=== PATIENT | female | born 1995 | race Two or more races ===

== ENCOUNTER 2017-07-01 15:15 | Emergency (ER) | payer OTHER ==
[2017-07-01 15:23] VITALS: BMI 28.3
[2017-07-01] MEDS ORDERED: NS 1000 ML 1,000 ML ONE (15:55)
[2017-07-01] MEDS ORDERED: NS 1000 ML 1,000 ML IV ONE (15:56)
[2017-07-01] MEDS ORDERED: ZOFRAN INJ 4 MG VIAL IVP ONE (15:56)
--- NOTE | 2017-07-01 15:59 | DR.N/VPEDF ---
HPI - Time Seen Time seen: 15:55 - Primary Care Physician Primary Care Physician: NFD - Complaints Chief Complaint Doctors Comments: Patient presents with complaint of weakness, dizziness onset three days ago. Denies vomiting, diarrhea or fever. Chief Complaint:: FEELING VERY WEAK, DIZZY AND HARDLY EATING. PT STATES," STARTED THREE DAYS AGO." Self Treatment fo Chief Complaint: IN BED FOR REST. WHEN I GOT UP I FELT DIZZY AND THROWING UP. - Source History Provided: Patient - Mode of Arrival Mode of Arrival: Ambulatory - Timing Onset of Chief Complaint: 06/21/17 - Associated Signs and Symptoms Temperature: 98.1 F PMH - Past Surgical History Past Surgical History: Yes Past Surgical History Comment: GASTRIC SLEEVE - Family History History of Family Medical Conditions: No - Social Does any household member use tobacco: No Alcohol Use: None - Vaccines Yearly Influenza Vaccine: Yes Pneumococcal Vaccine Every 5 Yrs: Yes (2017) - infectious screening In the last 2 months have you had wt loss of >10#?: NO Have you had fever, night sweats or hemotysis?: No Have you traveled outside the country in the last 6 months?: No Isolation: Standard ROS (Ped) - Review of Systems Eyes: No Symptoms Reported ENTM: No Symptoms Reported Respiratoy: No Symptoms Reported Cardiovascular: No Symptoms Reported Gastrointestinal/Abdominal: No Symptoms Reported Genitourinary: No Symptoms Reported Neurological: No Symptoms Reported Musculoskeletal: No Symptoms Reported Integumentary: No Symptoms Reported Hematologic/Lymphatic: No Symptoms Reported Endocrine: No Symptoms Reported Psychiatric: No Symptoms Reported All Other Systems: Reviewed and Negative PE - Vital Signs Vitals: Temperature 98.1 F Pulse Rate 91 Respiratory Rate 22 Blood Pressure 113/64 O2 Sat by Pulse Oximetry 100 - General Constitutional: Normal - Head Head Exam: Normal Inspection, Atraumatic - Eyes Eye exam: Normal Appearance, PERRL, EOMI - ENT ENT Exam: Normal Exam, Normal Oropharynx - Neck Neck Exam: Normal Inspection, Full ROM - Chest Chest Inspection: Normal Inspection - Respiratory Respiratory Exam: Normal Lung Sounds Bilat Respiratory Exam: Bilateral Clear to Auscultation - Cardiovascular Cardiovascular Exam: Regular Rate, Normal Rhythm - Abdominal Exam Abdominal Exam: Normal Inspection, Normal Bowel Sounds Abdominal Tenderness: negative: RUQ, RLQ, LUQ, LLQ, Epigastrium, Suprapubic, Diffuse, Mild, Moderate, Severe, Other - Rectal Rectal Exam: Deferred - Genitourinary External Exam: Female: Deferred - Extremities Extremities Exam: Normal Inspection, Full ROM - Back Back Exam: Normal Inspection, Full ROM - Neurologic Neurological Exam: Alert, Oriented X3, CN II-XII Intact - Psychiatric Psychiatric Exam: Normal Affect, Normal Mood - Skin Skin Exam: Warm, Dry, Intact Course - Reevaluation 1st: Unchanged ROR - Labs Reviewed Result Diagrams: 07/01/17 16:03 07/01/17 16:03 Laboratory: WBC 6.8 X10^3/uL (3.6-10.0) 07/01/17 16:03 RBC 4.09 X10^6/uL (3.5-5.4) 07/01/17 16:03 Hgb 11.4 g/dL (12.0-16.0) L 07/01/17 16:03 Hct 33.5 % (36.0-47.0) L 07/01/17 16:03 MCV 81.9 fL (80.0-100.0) 07/01/17 16:03 MCH 27.8 pg (27.0-34.0) 07/01/17 16:03 MCHC 34.0 g/dL (33.0-35.0) 07/01/17 16:03 RDW 13.9 % (11.6-16.5) 07/01/17 16:03 Plt Count 225 X10^3/uL (150.0-450.0) 07/01/17 16:03 MPV 9.0 fL (7.4-11.0) 07/01/17 16:03 Neut % 60.7 % (42.0-75.0) 07/01/17 16:03 Lymph % 31.2 % (21.0-51.0) 07/01/17 16:03 [place] % 7.0 % (0.0-13.0) 07/01/17 16:03 Eos % 0.7 % (0.9-2.9) L 07/01/17 16:03 Baso % 0.4 % (0.2-1.0) 07/01/17 16:03 Neut # 4.1 x10^3/uL (2.2-4.8) 07/01/17 16:03 Lymph # 2.1 X10^3/uL (1.3-2.9) 07/01/17 16:03 [place] # 0.5 x10^3/uL (0.3-0.8) 07/01/17 16:03 Eos # 0.1 x10^3/uL (0.0-0.2) 07/01/17 16:03 Baso # 0.0 X10^3/uL (0.0-0.1) 07/01/17 16:03 Absolute Nucleated RBC 0.0 /100WBC 07/01/17 16:03 Sodium 137 mmol/L (136-145) 07/01/17 16:03 Corrected Sodium TNP 07/01/17 16:03 Potassium 4.2 mmol/L (3.5-5.1) 07/01/17 16:03 Chloride 103 mmol/L (98-107) 07/01/17 16:03 Carbon Dioxide 24.7 mmol/L (21-32) 07/01/17 16:03 BUN 7 mg/dL (7-18) 07/01/17 16:03 Creatinine 0.51 mg/dL (0.55-1.02) L 07/01/17 16:03 Est GFR (MDRD) Af Amer > 60 (>60) 07/01/17 16:03 Est GFR (MDRD) Non-Af > 60 (>60) 07/01/17 16:03 Glucose 93 mg/dL (65-99) 07/01/17 16:03 Calcium 9.0 mg/dL (8.5-10.1) 07/01/17 16:03 Corrected Calcium TNP 07/01/17 16:03 Total Bilirubin 0.70 mg/dL (0.2-1.0) 07/01/17 16:03 AST 13 Units/L (15-37) L 07/01/17 16:03 ALT 9 Units/L (12-78) L 07/01/17 16:03 Alkaline Phosphatase 66 Units/L (45-150) 07/01/17 16:03 Total Protein 7.8 g/dL (6.4-8.2) 07/01/17 16:03 Albumin 3.7 g/dL (3.4-5.0) 07/01/17 16:03 Globulin 4.1 g/dL (2.5-4.5) 07/01/17 16:03 Albumin/Globulin Ratio 0.9 Ratio (1.1-2.1) L 07/01/17 16:03 Influenza Type A (PCR) Negative (NEGATIVE) 07/01/17 16:34 Influenza Type B (PCR) Negative (NEGATIVE) 07/01/17 16:34 S. pyogenes (TEM-PCR) Not detected (NOT DETECT) 07/01/17 16:05 - Diagnosis Discharge Problem: Dizziness - Discharge Plan Condition: Stable - Follow ups/Referrals Follow ups/Referrals: NFD,None [Primary Care Provider] - 3 days - Instructions
[2017-07-01 16:07] LABS: BASOPHILS % (AUTO) 0.4 % (0.2-1.0); EOSINOPHILS # (AUTO) 0.1 x10^3/uL (0.0-0.2); EOSINOPHILS % (AUTO) 0.7 % (0.9-2.9); HEMATOCRIT 33.5 % (36.0-47.0); HEMOGLOBIN 11.4 g/dL (12.0-16.0); LYMPHOCYTES # (AUTO) 2.1 X10^3/uL (1.3-2.9); LYMPHOCYTES % (AUTO) 31.2 % (21.0-51.0); MEAN CORPUSCULAR HEMOGLOBIN 27.8 pg (27.0-34.0); MEAN CORPUSCULAR VOLUME 81.9 fL (80.0-100.0); MONOCYTES # (AUTO) 0.5 x10^3/uL (0.3-0.8); NEUTROPHILS # (AUTO) 4.1 x10^3/uL (2.2-4.8); NEUTROPHILS % (AUTO) 60.7 % (42.0-75.0); PLATELET COUNT 225 X10^3/uL (150.0-450.0); RED BLOOD COUNT 4.09 X10^6/uL (3.5-5.4); RED CELL DISTRIBUTION WIDTH 13.9 % (11.6-16.5); WHITE BLOOD COUNT 6.8 X10^3/uL (3.6-10.0)
[2017-07-01 16:24] LABS: ALANINE AMINOTRANSFERASE 9 Units/L (12-78); ALBUMIN 3.7 g/dL (3.4-5.0); ALKALINE PHOSPHATASE 66 Units/L (45-150); ASPARTATE AMINO TRANSFERASE 13 Units/L (15-37); BLOOD UREA NITROGEN 7 mg/dL (7-18); CARBON DIOXIDE 24.7 mmol/L (21-32); CHLORIDE 103 mmol/L (98-107); CREATININE 0.51 mg/dL (0.55-1.02); SODIUM 137 mmol/L (136-145); TOTAL PROTEIN 7.8 g/dL (6.4-8.2); eGFR BLACK RACES > 60 (>60); eGFR NON BLACK RACES > 60 (>60)
[2017-07-01 17:59] VITALS: BP 105/56
== END 2017-07-01 18:06 | disposition home or self-care (01) ==
LOC: ER 15:38
DX: R42 Dizziness and giddiness (principal)
CPT/HCPCS: 36415; 80053; 85025; 87502; 87651; 96365; 99282; 99283; A4222

== ENCOUNTER 2017-08-01 09:00 | Emergency (ER) | payer OTHER ==
[2017-08-01 09:06] VITALS: BP 127/61; BMI 28.3
--- NOTE | 2017-08-01 09:32 | DR.DIZZY ---
HPI - Time seen Time seen: 09:30 - PCP Primary Care Physician: DR. BLANKENSHIP - HPI Comment HPI Comment: HISTORY BELOW. - Complaint Chief Complaint Doctor Comments: PATIENT FELL IN PATIENTS ROOM WHEN SHE WENT TO DRAW BLOOD. SHE HIT BACK OF HEAD AND RT JAW ON THE CHAIR. SHE IS 10 WEEKS . DENIES ABDOMINAL PAIN AND VAGINAL BLEEDING. FEEL SLIGHT DIZZINESS. Chief Complaint:: BYSTANDERS STATE " PT UPSTAIRS IN A PT'S ROOM AND SHE SAID SHE FELT FUNNY AND SHE PASSED OUT THEN HIT THE WALL AND A CHAIR AND PT WENT PALE ,,, AND PT C/O BEING 10 WEEKS PREG, PT C/O RIGHT CHEEK PAIN EDEMA NOTED AND PT C/O FEELING DIZZY". - Nurses Notes Reviewed Nurses Notes Review: Yes - Source History Provided: Patient, Bystander - Mode of Arrival Mode of Arrival: Wheelchair - Timing Onset of Chief Complaint: 08/01/17 Came on: Suddenly - Duration Duration: Constant Duration: Minutes - Context Onset: With light exertion Does pt take pot. toxic medication?: No History of: None Stroke Symptoms: Dizziness - Severity Severity: Normal activity level - Modifying factors Worsens: Nothing - Associated signs and symptoms Associated Signs and Symptoms: Near Syncope PMH - PMH Past Medical History: No Past Surgical History: Yes Surgical History: Cholecystectomy, Other Past Surgical History Comment: GALLBLADDER , AND GASTRIC SLEVE, , - Family History History of Family Medical Conditions: Yes - Social History Does patient currently use any type of tobacco product: No Have you used tobacco products in the last 12 months: No Type of Tobacco Use: Cigarettes Does any household member use tobacco: No Alcohol Use: None Do you use any recreational Drugs:: No Lives With: Family Lives Where: Home - infectious screening In the last 2 months have you had wt loss of >10#?: NO Have you had fever, night sweats or hemotysis?: No Have you traveled outside the country in the last 6 months?: No Isolation: Standard ROS - Review of Systems Constitutional: Other (DIZZINESS) Eyes: No Symptoms Reported ENTM: No Symptoms Reported Respiratoy: No Symptoms Reported Cardiovascular: No Symptoms Reported Gastrointestinal/Abdominal: No Symptoms Reported Genitourinary: No Symptoms Reported Neurological: No Symptoms Reported Musculoskeletal: Other (RIGHT JAW TENDER.) Integumentary: No Symptoms Reported Hematologic/Lymphatic: No Symptoms Reported Endocrine: No Symptoms Reported All Other Systems: Reviewed and Negative PE - Vital Signs Vitals: Temperature 98.9 F Pulse Rate 97 Respiratory Rate 20 Blood Pressure [Right Arm] 105/56 Blood Pressure 127/61 O2 Sat by Pulse Oximetry 97 - General Limitations: No Limitations General Appearance: Alert - Head Head Exam: Other (RT JAW TENDER.NO TRIISMUS.) - Eyes Pupils: Regular, Round: Bilateral, Reactive: Bilateral Sclera/Conjunctival: Normal Inspection: Bilateral - ENT ENT Exam: Normal External Ear Exam - Neck Neck Exam: Trachea Midline - Chest Chest Inspection: Symmetric Chest Wall Rise - Respiratory Respiratory Exam: Normal Lung Sounds Bilat Respiratory Exam: Bilateral Clear to Auscultation - Cardiovascular Cardiovascular Exam: Regular Rate, Normal Rhythm, Normal Heart Sounds - Abdominal Exam Abdominal Exam: Normal Bowel Sounds, Soft. negative: Tenderness - Rectal Rectal Exam: Deferred - Extremeties Extremities Exam: Normal Inspection - Back Back Exam: Normal Inspection - Neurologic Neurological Exam: Alert, Oriented X3, CN II-XII Intact Cranial Nerve Exam: EOM Function (II, III, IV, ): Normal, Facial Sensation (V) : Normal, Facial Palsy (VII): Normal, Gag reflex (XI): Normal, Spinal Accessory Function (XI): Normal, Tongue Deviation: Normal Motor Strength - LUE: 5/5 Motor Strength - RUE: 5/5 Motor Strength - LLE: 5/5 Motor Strength - RLE: 5/5 Upper Motor Neuron Exam: Babinski Sign: Normal - Skin Skin Exam: Normal Color MDM - Additional Information Additional Information Obtained From: Family - Differential Diagnosis Differential Diagnosis: Dehydration, Hypoglycemia, Vertigo- central (DIZZINESS, NEAR SYNCOPE) Course - Treatment Treatment: SEE ORDERSS. - Education/Counseling Education/Counseling: Patient, Family, Education Educated On: Diagnosis, Needs for Follow Up ROR - Labs Reviewed Laboratory Results Reviewed?: Yes Result Diagrams: 08/01/17 09:50 08/01/17 09:50 Laboratory: WBC 5.8 X10^3/uL (3.6-10.0) 08/01/17 09:50 RBC 3.61 X10^6/uL (3.5-5.4) 08/01/17 09:50 Hgb 10.1 g/dL (12.0-16.0) L 08/01/17 09:50 Hct 29.7 % (36.0-47.0) L 08/01/17 09:50 MCV 82.1 fL (80.0-100.0) 08/01/17 09:50 MCH 28.0 pg (27.0-34.0) 08/01/17 09:50 MCHC 34.1 g/dL (33.0-35.0) 08/01/17 09:50 RDW 14.8 % (11.6-16.5) 08/01/17 09:50 Plt Count 204 X10^3/uL (150.0-450.0) 08/01/17 09:50 MPV 9.1 fL (7.4-11.0) 08/01/17 09:50 Neut % (Auto) 61.1 % (42.0-75.0) 08/01/17 09:50 Lymph % (Auto) 31.8 % (21.0-51.0) 08/01/17 09:50 [place] % (Auto) 6.0 % (0.0-13.0) 08/01/17 09:50 Eos % (Auto) 0.8 % (0.9-2.9) L 08/01/17 09:50 Baso % (Auto) 0.3 % (0.2-1.0) 08/01/17 09:50 Neut # (Auto) 3.6 x10^3/uL (2.2-4.8) 08/01/17 09:50 Lymph # (Auto) 1.9 X10^3/uL (1.3-2.9) 08/01/17 09:50 [place] # (Auto) 0.4 x10^3/uL (0.3-0.8) 08/01/17 09:50 Eos # (Auto) 0.0 x10^3/uL (0.0-0.2) 08/01/17 09:50 Baso # (Auto) 0.0 X10^3/uL (0.0-0.1) 08/01/17 09:50 Absolute Nucleated RBC 0.0 /100WBC 08/01/17 09:50 Sodium 137 mmol/L (136-145) 08/01/17 09:50 Corrected Sodium TNP 08/01/17 09:50 Potassium 3.9 mmol/L (3.5-5.1) 08/01/17 09:50 Chloride 103 mmol/L (98-107) 08/01/17 09:50 Carbon Dioxide 24.6 mmol/L (21-32) 08/01/17 09:50 BUN 7 mg/dL (7-18) 08/01/17 09:50 Creatinine 0.48 mg/dL (0.55-1.02) L 08/01/17 09:50 Est GFR (MDRD) Af Amer > 60 (>60) 08/01/17 09:50 Est GFR (MDRD) Non-Af > 60 (>60) 08/01/17 09:50 Glucose 82 mg/dL (65-99) 08/01/17 09:50 Calcium 8.5 mg/dL (8.5-10.1) 08/01/17 09:50 Corrected Calcium 9.1 mg/dL (8.5-10.1) 08/01/17 09:50 Total Bilirubin 0.60 mg/dL (0.2-1.0) 08/01/17 09:50 AST 9 Units/L (15-37) L 08/01/17 09:50 ALT 13 Units/L (12-78) 08/01/17 09:50 Alkaline Phosphatase 48 Units/L (45-150) 08/01/17 09:50 Total Protein 7.1 g/dL (6.4-8.2) 08/01/17 09:50 Albumin 3.3 g/dL (3.4-5.0) L 08/01/17 09:50 Globulin 3.8 g/dL (2.5-4.5) 08/01/17 09:50 Albumin/Globulin Ratio 0.9 Ratio (1.1-2.1) L 08/01/17 09:50 HCG, Quant 84475 mIU/mL (0-6) H 08/01/17 09:50 - XRAY XRAY Findings: REPORT DISCUSS WITH PATIENT. - Diagnosis Discharge Problem: Dizziness, Jaw pain, Musculoskeletal pain - Discharge Plan Condition: Stable - Follow ups/Referrals Follow ups/Referrals: MARBIN BLANKENSHIP [Primary Care Provider] - 08/02/17 - Instructions Instructions: Near-Syncope, [id number], Dizziness, [id number] Additional Instructions: RETURN TO ED IF WORSE. TAKE TYLENOL 650MG EVERY 6HR NEEDED FOR PAIN.
[2017-08-01 09:56] LABS: BASOPHILS % (AUTO) 0.3 % (0.2-1.0); EOSINOPHILS % (AUTO) 0.8 % (0.9-2.9); HEMATOCRIT 29.7 % (36.0-47.0); HEMOGLOBIN 10.1 g/dL (12.0-16.0); LYMPHOCYTES # (AUTO) 1.9 X10^3/uL (1.3-2.9); LYMPHOCYTES % (AUTO) 31.8 % (21.0-51.0); MEAN CORPUSCULAR HGB CONC 34.1 g/dL (33.0-35.0); MEAN CORPUSCULAR VOLUME 82.1 fL (80.0-100.0); MEAN PLATELET VOLUME 9.1 fL (7.4-11.0); MONOCYTES # (AUTO) 0.4 x10^3/uL (0.3-0.8); NEUTROPHILS # (AUTO) 3.6 x10^3/uL (2.2-4.8); NEUTROPHILS % (AUTO) 61.1 % (42.0-75.0); PLATELET COUNT 204 X10^3/uL (150.0-450.0); RED BLOOD COUNT 3.61 X10^6/uL (3.5-5.4); RED CELL DISTRIBUTION WIDTH 14.8 % (11.6-16.5); WHITE BLOOD COUNT 5.8 X10^3/uL (3.6-10.0)
[2017-08-01 10:09] LABS: ALANINE AMINOTRANSFERASE 13 Units/L (12-78); ALBUMIN 3.3 g/dL (3.4-5.0); ALKALINE PHOSPHATASE 48 Units/L (45-150); ASPARTATE AMINO TRANSFERASE 9 Units/L (15-37); BLOOD UREA NITROGEN 7 mg/dL (7-18); CALCIUM 8.5 mg/dL (8.5-10.1); CARBON DIOXIDE 24.6 mmol/L (21-32); CHLORIDE 103 mmol/L (98-107); COR CA(FOR HYPOALB) 9.1 mg/dL (8.5-10.1); CREATININE 0.48 mg/dL (0.55-1.02); SODIUM 137 mmol/L (136-145); TOTAL PROTEIN 7.1 g/dL (6.4-8.2); eGFR BLACK RACES > 60 (>60); eGFR NON BLACK RACES > 60 (>60)
[2017-08-01 10:40] LABS: HCG,QUANTITATIVE 72392 mIU/mL (0-6)
--- NOTE | 2017-08-01 11:10 | US ---
HISTORY: Syncope. Intrauterine . Study: 1st trimester obstetrical ultrasound: Multiplanar ultrasonographic examination of the uterus and its contents was performed transabdominally. Comparison: None Findings: On the images submitted to pa there is a single intrauterine present with spontaneous activ ity and a heart rate recorded at 163 beats per minute. A well-defined gestational sac is present onofre suring 6.56 cm. There is smooth homogeneous decidual reaction. There is an impression on the gestat ional sac anteriorly, most likely due to a focal myometrial contraction. There may be very minimal s ub decidual hemorrhage present. The crown-rump length is 45.2 mm equating to 11 weeks and 4 days. The EDC by ultrasound is 8 . Based on LMP provided of 04/06/2017, the estimated gestational age is 16 weeks and 5 days with an EDC of 01/11/2018 IMPRESSION: 1. Single intrauterine present with spontaneous activity and heart rate recorded at 163 be ats per minute. 2. Based on crown-rump length of 47.2 mm, the length equates to a gestational age of 11 weeks and 4 days with an EDC of 02/16/2018. This is incongruent with the EDC and EGA based on LMP, however, per technologist's note the patient reports to have had abnormal menstrual cycles. 3. Equivocal small area of sub decidual hemorrhage. Correlation with clinical findings is recommende d. Follow-up ultrasounds are recommended. 4. There is thickening of the anterior myometrial wall, most likely due to a focal myometrial contra ction. Reported By:
== END 2017-08-01 11:27 | disposition home or self-care (01) ==
LOC: ER 09:08
DX: R42 Dizziness and giddiness (principal); R68.84 Jaw pain; M79.1 Myalgia; Z3A.10 10 weeks gestation of pregnancy; W19.XXXA Unspecified fall, initial encounter; Y92.9 Unspecified place or not applicable
CPT/HCPCS: 36415; 76801; 80053; 84702; 85025; 99284

== ENCOUNTER 2021-06-30 06:33 | Inpatient (IN) ==
[2021-06-30] MEDS ORDERED: PITOCIN ONE ×2 (06:50→06:51)
[2021-06-30] MEDS ORDERED: BETADINE SOLN ONE (06:51)
[2021-06-30] MEDS ORDERED: LR 1,000 ML IV 1,000 ML IV ONE ×2 (06:51→06:52)
[2021-06-30] MEDS ORDERED: PHENERGAN INJ 25 MG IM PRN ×2 (07:00→15:34)
[2021-06-30] MEDS ORDERED: REGLAN INJ 10 MG VIAL IVP PRN (07:00)
[2021-06-30] MEDS ORDERED: PITOCIN IVP ONE (07:00)
[2021-06-30] MEDS ORDERED: STADOL INJ IVP PRN (07:00)
[2021-06-30] MEDS ORDERED: PITOCIN IV ONE ×2 (07:00)
[2021-06-30] MEDS ORDERED: LR IV ONE ×2 (07:00)
[2021-06-30] MEDS ORDERED: AMPICILLIN VIAL 2 GRAM 2 G in NS 100 ML IV + SPIKE MINIBAG* 100 ML IV SCH (07:00)
[2021-06-30 07:24] LABS: BILIRUBIN,URINE 1+ (NEGATIVE); BLOOD/HEMOGLOBIN,URINE NEGATIVE (NEGATIVE); GLUCOSE, URINE NEGATIVE (NEGATIVE); KETONES,URINE 3+ (NEGATIVE); LEUKOCYTE ESTERASE ,URINE 2+ (NEGATIVE); NITRITES,URINE NEGATIVE (NEGATIVE); PH,URINE 6.5 (5.0 - 8.0); PROTEIN,URINE 2+ (NEGATIVE); UROBILINOGEN,URINE 3+ (NORMAL)
[2021-06-30 07:25] LABS: BASOPHILS # (AUTO) 0.1 X10^3/uL (0.0-0.1); BASOPHILS % (AUTO) 0.9 % (0.2-1.0); EOSINOPHILS % (AUTO) 0.4 % (0.9-2.9); HEMATOCRIT 24.1 % (36.0-47.0); HEMOGLOBIN 7.3 g/dL (12.0-16.0); LYMPHOCYTES # (AUTO) 2.5 X10^3/uL (1.3-2.9); LYMPHOCYTES % (AUTO) 28.4 % (21.0-51.0); MEAN CORPUSCULAR HEMOGLOBIN 20.6 pg (27.0-34.0); MEAN CORPUSCULAR HGB CONC 30.5 g/dL (33.0-35.0); MEAN CORPUSCULAR VOLUME 67.5 fL (80.0-100.0); MEAN PLATELET VOLUME 9.4 fL (7.4-11.0); MONOCYTES # (AUTO) 0.4 x10^3/uL (0.3-0.8); MONOCYTES % (AUTO) 4.6 % (0.0-13.0); NEUTROPHILS # (AUTO) 5.7 x10^3/uL (2.2-4.8); NEUTROPHILS % (AUTO) 65.7 % (42.0-75.0); RED BLOOD COUNT 3.57 X10^6/uL (3.5-5.4); RED CELL DISTRIBUTION WIDTH 20.5 % (11.6-16.5); WHITE BLOOD COUNT 8.7 X10^3/uL (3.6-10.0)
[2021-06-30 07:30] LABS: BLOOD UREA NITROGEN 9 mg/dL (7-18); CALCIUM 7.8 mg/dL (8.5-10.1); CARBON DIOXIDE 20.8 mmol/L (21-32); CHLORIDE 105 mmol/L (98-107); CREATININE 0.86 mg/dL (0.55-1.02); SODIUM 139 mmol/L (136-145); eGFR NON BLACK RACES > 60 (>60)
[2021-06-30 07:36] LABS: APPEARANCE,URINE SLIGHTLY HAZY (CLEAR); COLOR,URINE DARK YELLOW (YELLOW)
[2021-06-30 07:37] LABS: BACTERIA,URINE TRACE /HPF (NEGATIVE); RBC,URINE 0-2 /HPF (0-3); SQUAMOUS EPITHELIAL CELL,UR MANY /HPF (NEGATIVE)
[2021-06-30 07:45] LABS: ANISOCYTOSIS 1+; PLATELET MORPHOLOGY COMMENT NORMAL (NORMAL)
[2021-06-30 07:46] LABS: MICROCYTOSIS 1+; OVALOCYTES PRESENT; STOMATOCYTES PRESENT
[2021-06-30] MEDS ORDERED: AMPICILLIN VIAL 2 GRAM 2 G in NS 100 ML IV 100 ML IV SCH (08:00)
[2021-06-30] MEDS ORDERED: REGLAN INJ 10 MG VIAL ONE (08:34)
[2021-06-30] MEDS ORDERED: AMPICILLIN VIAL 2 GRAM ONE (09:42)
[2021-06-30] MEDS ORDERED: NS 100 ML IV 100 ML ONE ×2 (09:44→14:05)
[2021-06-30] MEDS ORDERED: STADOL INJ ONE (10:21)
[2021-06-30] MEDS ORDERED: ZOFRAN INJ 4 MG VIAL ONE (11:02)
[2021-06-30] MEDS ORDERED: FENTANYL VIAL INJ 100 mcg ONE ×2 (11:14)
[2021-06-30] MEDS ORDERED: NAROPIN EPIDURAL 0.2% 100 ML ONE (11:15)
[2021-06-30] MEDS ORDERED: EPHEDRINE SULFATE INJ ONE (13:27)
[2021-06-30] MEDS ORDERED: AMPICILLIN VIAL 1 GRAM 1 G in NS 100 ML IV 100 ML IV SCH (13:50)
[2021-06-30] MEDS ORDERED: AMPICILLIN VIAL 1 GRAM ONE (14:04)
[2021-06-30] MEDS ORDERED: MOTRIN TAB 800 MG PO PRN ×2 (15:34→16:48)
[2021-06-30] MEDS ORDERED: DERMOPLAST PAIN RELIEF SPRAY TOP PRN (16:48)
[2021-06-30] MEDS ORDERED: MILK OF MAGNESIA PO PRN (16:48)
[2021-06-30] MEDS ORDERED: AMBIEN PO PRN (16:48)
[2021-06-30] MEDS ORDERED: ADACEL or BOOSTRIX TDaP VACCINE IM ONE (16:48)
[2021-06-30] MEDS ORDERED: NS 100 ML IV 100 ML with VENOFER 400 MG IV NR ×2 (17:00)
[2021-06-30] MEDS ORDERED: D5 1/2 NS 1,000 mL + PITOCIN 20 UNITS/L IV 20 UNITS/1,000 ML BAG IV ONE (17:02)
[2021-07-01] MEDS: MOTRIN TAB 800 MG PO PRN ×2 (00:55→08:52)
[2021-07-01 05:04] LABS: HEMOGLOBIN 5.8 g/dL (12.0-16.0)
[2021-07-01 05:05] LABS: HEMATOCRIT 19.5 % (36.0-47.0)
[2021-07-01] MEDS ORDERED: LINZESS PO ONE (07:53)
[2021-07-01] MEDS ORDERED: INFeD or DEXFERRUM 25 MG in NS 100 ML IV 100 ML IV ONE (08:00)
[2021-07-01] MEDS ORDERED: FOLIC ACID TAB 1 MG PO SCH (09:00)
[2021-07-01] MEDS ORDERED: NS IV ONE (09:00)
[2021-07-01] MEDS ORDERED: INFED OR DEXFERRUM IV ONE (09:00)
[2021-07-01] MEDS ORDERED: PRENATAL PLUS PO SCH (09:00)
[2021-07-01 16:33] VITALS: BP 134/74
== END 2021-07-01 17:55 | disposition home or self-care (01) | DRG 807 ==
LOC: LD 06:33 → MED/SURG 17:19
PROVIDERS: ADMIT Obstetrics & Gynecology Obstetrics; ATTEND Obstetrics & Gynecology Obstetrics